=== PATIENT | female | born 1985 | race Caucasian/White ===

== ENCOUNTER 2018-01-02 12:08 | Emergency (ER) | payer MEDICAID, OTHER ==
[2018-01-02 12:30] VITALS: BMI 31.6
[2018-01-02] MEDS ORDERED: Lidocaine 5% Patch TD STA (13:34)
[2018-01-02] MEDS ORDERED: Lidocaine 5% Patch TD ONE (13:59)
[2018-01-02 14:18] LABS: HCG,QUALITATIVE URINE NEGATIVE (NEGATIVE)
[2018-01-02 14:35] LABS: SQUAMOUS EPITHIAL < 1 /hpf (0-5); URINE BACTERIA MANY (<OCC); URINE BILIRUBIN NEGATIVE (NEGATIVE); URINE BLOOD 2+ (NEGATIVE); URINE CLARITY Clear (Clear); URINE COLOR Yellow (YELLOW); URINE GLUCOSE (UA) NORMAL (Normal); URINE LEUKOCYTE ESTERASE NEG Leu/uL (Negative); URINE PROTEIN 1+ mg/dL (NEGATIVE); URINE UROBILINOGEN NORMAL mg/dL (0.2-1.0)
--- NOTE | 2018-01-02 14:59 | C.PDOC ---
History Of Present Illness 32yo female, otherwise well, presents to ED with complaints of bilateral lower back pain radiating to lateral hips. Patient denies any injury, trauma, fever, chills, nausea or vomiting. She also denies any bowel or bladder dysfunction. No other complaints. Time Seen by Provider: 01/02/18 13:10 Chief Complaint (Nursing): Back Pain History Per: Patient History/Exam Limitations: no limitations Onset/Duration Of Symptoms: Days Current Symptoms Are (Timing): Still Present Quality Of Discomfort: "Pain" Associated Symptoms: denies: Incontinence, New Weakness, New Numbness Past Medical History Reviewed: Historical Data, Nursing Documentation, Vital Signs Vital Signs: Last Vital Signs Temp 98.3 F 01/02/18 15:25 Pulse 107 H 01/02/18 15:25 Resp 20 01/02/18 15:25 BP 100/64 01/02/18 15:25 Pulse Ox 98 01/03/18 13:51 - Medical History PMH: No Chronic Diseases Surgical History: No Surg Hx - [facility] Procedures ARTIF RUPT MEMBRANES NEC (05/05/14) BILAT TUBAL DIVISION NEC (05/05/14) MONITORING NOS (05/05/14) INJECT/INFUSE NEC (04/29/14) INSERT INDWELLING CATH (04/29/14) LOW CERVICAL (05/05/14) Family History: States: No Known Family Hx - Social History Hx Alcohol Use: No Hx Substance Use: No - Immunization History Hx Tetanus Toxoid Vaccination: Yes Hx Influenza Vaccination: No Hx Pneumococcal Vaccination: No Review Of Systems Except As Marked, All Systems Reviewed And Found Negative. Constitutional: Negative for: Fever, Chills Gastrointestinal: Negative for: Nausea, Vomiting, Abdominal Pain Genitourinary: Negative for: Incontinence Musculoskeletal: Positive for: Back Pain Neurological: Negative for: Weakness, Numbness Physical Exam - Physical Exam Appears: Non-toxic, No Acute Distress Skin: Normal Color Head: Normacephalic Eye(s): bilateral: Normal Inspection Neck: Normal ROM, Supple Chest: Symmetrical Cardiovascular: Rhythm Regular Respiratory: Normal Breath Sounds Gastrointestinal/Abdominal: Normal Exam, Soft, No Tenderness Back: Paraspinal Tenderness (bilateral paralumbar tenderness) Extremity: Normal ROM Neurological/Psych: Oriented x3 ED Course And Treatment O2 Sat by Pulse Oximetry: 98 (RA) Pulse Ox Interpretation: Normal Medical Decision Making Medical Decision Making: Impression: Lower back pain Plan: -- Tylenol 975 mg PO -- Flexeril 10 mg PO -- Motirn 600 mg PO -- Lidocaine patch -- Urinalysis Urine positive for nitrates, patient to be treated for UTI. Informed to take medication as prescribed and to follow up with PCP in 2-3 days. Stable for discharge home. Disposition - Disposition Referrals: [facility] [Outside] Disposition: HOME/ ROUTINE Condition: STABLE Prescriptions: Ibuprofen [Motrin] 600 mg PO TID #15 tab Nitrofurantoin Macrocrystals [Macrobid] 100 mg PO BID #14 cap Instructions: Urinary Tract Infections in Adults Forms: General Discharge Instructions, [facility] ([place]) - POA Present On Arrival: None - Clinical Impression Clinical Impression: Sciatica, UTI (urinary tract infection) - Scribe Statement The provider has reviewed the documentation as recorded by the Scribe (Jada Velasquez) Provider Attestation: All medical record entries made by the Scribe were at my direction and personally dictated by me. I have reviewed the chart and agree that the record accurately reflects my personal performance of the history, physical exam, medical decision making, and the department course for this patient. I have also personally directed, reviewed, and agree with the discharge instructions and disposition.
[2018-01-02 15:26] VITALS: BP 100/64; PULSE 107; RESP 20; TEMP 98.3
[2018-01-02 15:50] VITALS: O2SAT 98
== END 2018-01-02 15:26 | disposition home or self-care (01) ==
LOC: C.ER 12:08
DX: N39.0 Urinary tract infection, site not specified (principal); M54.30 Sciatica, unspecified side